=== PATIENT | female | born 1990 | race Caucasian/White ===

== ENCOUNTER → 2022-02-26 07:48 | Outpatient (BNVA) | payer OTHER, SELFPAY | PROVIDERS: Family Provider Family Medicine; Visit Provider Family Medicine Adult Medicine | DX: R30.0 Dysuria (principal); R10.2 Pelvic and perineal pain; F31.11 Bipolar disorder, current episode manic without psychotic features, mild; Z87.442 Personal history of urinary calculi; K02.9 Dental caries, unspecified | CPT/HCPCS: 81000 ==

== ENCOUNTER → 2022-04-16 13:34 | Outpatient (BNVA) | payer OTHER, SELFPAY | PROVIDERS: Family Provider Family Medicine; Referring Provider Family Medicine Adult Medicine; Visit Provider Obstetrics & Gynecology | DX: R10.2 Pelvic and perineal pain (principal); G89.29 Other chronic pain | CPT/HCPCS: 87491; 87591 ==

== ENCOUNTER → 2022-04-30 09:12 | Outpatient (BNVA) | payer OTHER, SELFPAY | PROVIDERS: Family Provider Family Medicine; Visit Provider Obstetrics & Gynecology | DX: G89.29 Other chronic pain (principal); R10.2 Pelvic and perineal pain | CPT/HCPCS: 76830; 76856 ==

== ENCOUNTER 2022-06-13 06:37 | Day surgery (SDC) | payer OTHER, SELFPAY ==
--- NOTE | 2022-06-07 15:12 | P.ANESASSM_ITS ---
Pre-Anesthetic Assessment Height/Weight: Height 1.65 m Weight 83.461 kg Operation Date: 06/13/22 14:15 Proposed Procedures p Diagnostic laparoscopy 33629,R10.2(Not Applicable) - Yuri Brito MD Familial anesthetic complications: none Was Beta Dieudonne taken within 24 hours: N/A Was Clonidine taken within 24 hours: N/A Social No alcohol and No tobacco (h/o smoking) Exam alert, oriented x 3 and regular rate & rhythm Airway Submandibular: within normal limits Cervical ROM: within normal limits Mallampati: Class II Dentition: chipped Comments: Comments: multiple caries Pulmonary Asthma and Chronic Obstructive Pulmonary Disease Neuropsych Bipolar Anesthetic Plan ASA status: 2 Anesthesia: General Medications/Allergies Home Medications Medication Instructions Recorded Confirmed Last Taken Type albuterol sulfate 90 mcg/actuation 2 puff inhalation Q6H PRN 03/26/22 06/07/22 Unknown Rx aerosol inhaler shortness of breath or wheezing #8.5 grams fluticasone 250 mcg-salmeterol 50 1 inh inhalation BID #60 ea 03/26/22 06/07/22 Unknown Rx mcg/dose blistr powdr for inhalation (Advair Diskus) Allergies Allergy/AdvReac Type Severity Reaction Status Date / Time tramadol Allergy Severe ALGY-Anaphy Verified 06/07/22 08:46 laxis Penicillins Allergy Unknown Unknown Verified 06/07/22 08:46 [facility] Anesthesia Medical History (Updated 04/16/22 @ 13:39 by Yuri Brito MD) Asthma exacerbation Bipolar 1 disorder, manic, mild Dental caries Dysuria History of kidney stones Pelvic pain Surgical History (Updated 04/16/22 @ 13:13 by Marylin Matute RN) H/O: Hx of right knee surgery Family History (Updated 04/16/22 @ 13:11 by Marylin Matute RN) Father Anesthesia complication Hypertension Stroke Heart disease Grandmother Diabetes maternal Hypertension maternal Stroke maternal Thyroid condition maternal Heart disease maternal Uterine cancer, Onset Age: 17 paternal Mother Hypertension Heart disease Breast cancer 30's Denies family history of Colon cancer Ovarian cancer Clotting disorder Hyperlipidemia Bleeding disorder Social History (Updated 02/26/22 @ 07:31 by Rin Arrington LPN) Smoking and tobacco status: former smoker Quit status (tobacco): has quit using tobacco Year quit tobacco: 2016 Alcohol intake: former Marital status: Number of children: 1 Current occupational status: employed Female Reproductive History Date of last menstrual period: 04/19/22 Data Anesthesia Cardiac Studies: No Data to Display
[2022-06-13] VITALS (12 sets, daily range): BP systolic 102–110; BP diastolic 62–84; PULSE 58–89; RESP 12–24; TEMP 36.3–36.8; O2SAT 97–100
[2022-06-13] MEDS: sodium chloride 0.9% 1,000 ML 30 ML IV (07:13)
[2022-06-13] MEDS: scopolamine 1.5 Patch 1 PATCH TRANSDERMA (07:14)
[2022-06-13] MEDS: sodium chloride 0.9% 500 ML IV (07:14)
[2022-06-13 07:23] LABS: Basophils % 0.4 %; Eosinophils % 0.4 %; Hematocrit 34.5 % (37.0-47.0); Hemoglobin 11.2 g/dL (11.5-15.3); Lymphocytes # 1.4 10^3/uL (0.8-4.8); Lymphocytes % 24.7 %; Mean Corpuscular HGB Conc 32.5 g/dL (30.0-36.0); Mean Corpuscular Hemoglobin 27.8 pg (28.0-34.0); Mean Corpuscular Volume 85.6 fl (81-99); Mean Platelet Volume 10.8 fL (7.4-10.4); Monocytes # 0.4 10^3/uL (0.2-0.9); Monocytes % 7.9 %; Neutrophils # 3.68 10^3/uL (1.8-7.7); Neutrophils % 66.4 %; Nucleated Red Blood Cells % 0 %; Platelet Count 323 10^3/cmm (130-400); Red Blood Count 4.03 10^6/uL (4.1-5.3); Red Cell Distribution Width 13.7 % (12.1-15.1); White Blood Count 5.5 10^3/uL (4.0-10.0)
[2022-06-13 07:24] LABS: OR HCG Qualitative Urine Negative (Negative)
--- NOTE | 2022-06-13 07:33 | ANES.PAUD2 ---
Documented by User: Pretty Ramos CRNA 06/13/22 07:35 Pre-Anesthetic Update Pre-Anesthetic Assessment: Date of Surgery/Procedure: 06/13/22 Preop Diagnosis: Chronic pelvic pain Proposed Procedure: Operation Date: 06/13/22 08:00 Proposed Procedures p Diagnostic laparoscopy 49580,R10.2(Not Applicable) - Yuri Brito MD Last Intake: Intake Last Liquid Date 06/12/22 Last Liquid Time 20:00 Last Solid Date 06/12/22 Last Solid Time 20:00 Labs Last 48hrs: Short CBC 06/13/22 Range/Units 07:00 WBC 5.5 (4.0-10.0) 10^3/ uL Hgb 11.2 L (11.5-15.3) g/dL Hct 34.5 L (37.0-47.0) % MCV 85.6 (81-99) fl Plt Count 323 (130-400) 10^3/c mm Neut % (Auto) 66.4 % Neut # (Auto) 3.68 (1.8-7.7) 10^3/u L Vitals: Temperature 98.3 F 06/13/22 06:51 Temperature Source Temporal Artery S can 06/13/22 06:51 Pulse Rate 89 06/13/22 06:51 Respiratory Rate 16 06/13/22 06:51 Blood Pressure 110/84 06/13/22 06:51 Blood Pressure Lo n 92 06/13/22 06:51 Pulse Oximetry 97 06/13/22 06:51 Oxygen Delivery Me thod 06/13/22 07:16 Exam: Additional Exam Findings (including area of procedure): no changes in health since previous preoperative evaluation. Cardiac Studies: No Data to Display Documented by User: Freddy Dumont 06/13/22 13:42 Pre-Anesthetic Update Pre-Anesthetic Assessment: Date of Surgery/Procedure: 06/13/22 Cardiac Studies: No Data to Display
--- NOTE | 2022-06-13 07:36 | W.PM.OPSUD ---
Surgery/Procedure H&P Update DATE OF PROCEDURE: June 13, 2022 DATE H&P PERFORMED: 06/07/22 H&P UPDATE INFORMATION: I have reviewed H&P completed within last 30 days, I have examined patient prior to procedure and No changes to prior documentation PREOP DIAGNOSIS: Chronic pelvic pain PLANNED PROCEDURE: Operation Date: 06/13/22 08:00 Proposed Procedures p Diagnostic laparoscopy 45090,R10.2(Not Applicable) - Yuri Brito MD
[2022-06-13 07:53] LABS: Alanine Aminotransferase 11 U/L (0-33); Albumin Level 4.3 g/dL (3.5-5.2); Alkaline Phosphatase 67 U/L (35-105); Anion Gap 16.5 (5-19); Aspartate Amino Transferase 14 U/L (0-32); Blood Urea Nitrogen 16 mg/dL (6-20); Calcium 9.1 mg/dL (8.5-10.5); Carbon Dioxide 23 mmol/L (22-29); Chloride 100 mmol/L (98-107); Globulin 4.8 g/dL (1.3-4.6); Glomerular Filtration Rate 98.3 mL/min (90-130); Glucose 72 mg/dL (65-115); Osmolality Calculated 282 mOsm/kg (285-295); Potassium 3.5 mmol/L (3.5-5.1); Sodium 136 mmol/L (136-145); Total Bilirubin 1.5 mg/dL (0.15-1.2); Total Protein 9.1 g/dL (6.6-8.7)
[2022-06-13] MEDS: vancomycin 1,000 MG in sodium chloride 0.9% 250 ML 250 MG IV (07:53)
[2022-06-13 08:02] LABS: Urine Appearance Cloudy (CLEAR); Urine Color Red (Yellow); pH Urine 5 (5-7)
[2022-06-13 08:03] LABS: Add Urine Microscopic? YES; Bilirubin Urine 1+ (Negative); Blood Urine 3+ (Negative); Glucose Urine UA Norm (Normal); Ketones Urine 1+ (Negative); Leukocyte Esterase Urine Trace (Negative); Nitrate Urine Negative (Negative); Protein Urine 2+ (Negative); Urobilinogen Urine 1 mg/dL (Negative)
[2022-06-13 08:05] LABS: Add Urine Culture? Yes; Bacteria Urine 1+ /hpf; RBC Urine >100 /hpf (0-2)
[2022-06-13] MEDS: fentaNYL 50 mcg/mL INJ 2mL IVP (09:04)
--- NOTE | 2022-06-13 10:32 | P.OP_ITS ---
Operative Report Date of procedure: June 13, 2022 Pre-op diagnosis: Preop Diagnosis Chronic pelvic pain Post-op diagnosis: Same as above Post-op findings: Normal pelvic organs increased vascularity Procedure done: Diagnostic laparotomy Specimens removed/disposition: None Surgeon: Yuri Brito MD Estimated blood loss (mL): 5 IV fluids (mL): 500 Urine output (mL): 50 Complications: None Procedure: After informed consent, the patient was taken to the operating room where general anesthesia was administered. The patient was examined under anesthesia and found to have a normal uterus with normal adnexa. She was placed in the dorsal lithotomy position and prepped and draped in sterile fashion. Pre- Procedure Time-Out verifying the correct patient identity, correct procedure verified with consent, correct site and side, correct patient position, availability of correct implants and any special equipment or requirements was performed and acknowledge by the OR team. A weighted speculum was placed in the vagina, and the anterior lip of cervix was grasped with the single toothed tenaculum. A uterine manipulator was advanced into the endocervical. Tenaculum was removed after uterine manipulator was secured. The speculum was removed from the vagina. An intraumbilical incision was made with a scalpel. While tenting up on the abdomen, a Verres needle with sleeve was admitted into the intra-abdominal cavity. A saline drop test was performed and noted to be within normal limits. Pneumoperitoneum was attained with 4 liters of carbon dioxide. The Verres needle was removed. A 5 mm trocar and sleeve were admitted into the abdomen and laparoscopic confirmation of location was achieved, A second incision was made 3 cm above the symphysis pubis, and a 5 mm trocar and sleeve were admitted into the abdomen under direct, laparoscopic visualization without complication. A survey revealed normal abdominal anatomy and pelvic survey shows normal uterus, left and right adnexa. A 5 mm blunt probe was advanced through the second trocar sleeve, and light manipulation of ovaries and uterus to assess the posterior aspects was performed. Status post partial salpingectomy noted an increase vascular pattern by the adnexas. No identifiable pathology noted. Then the carbon dioxide was allowed to escape from the abdomen. The instruments were removed, and skin cover with a bandage. The instruments were removed from the vagina, and excellent hemostasis was noted. The patient tolerated the procedure well, and sponge, lap and needle count were correct times two. The patient taken to the recovery room in good condition.
--- NOTE | 2022-06-13 13:42 | ANE.PACU2 ---
Inpatient post-anesthesia follow up: Airway intact: Yes Vital signs: Temperature 97.3 F Pulse Rate 76 Respiratory Rate 16 Blood Pressure 105/81 Pulse Oximetry 99 Oxygen Delivery Me thod Room Air Oxygen Flow Rate 4 Fraction of Inspir ed Oxygen Hydration adequate: Yes Nausea and vomiting: No Pain level: 3 Mental status: Baseline
== END 2022-06-13 10:55 | disposition home or self-care (01) ==
PROVIDERS: PCP Family Medicine Adult Medicine; Visit Provider Obstetrics & Gynecology
PROC: (CPT 49320; principal; 2022-06-13 08:00)
DX: R10.2 Pelvic and perineal pain (principal); G89.29 Other chronic pain; J44.9 Chronic obstructive pulmonary disease, unspecified; Z79.51 Long term (current) use of inhaled steroids; Z87.891 Personal history of nicotine dependence; Z88.0 Allergy status to penicillin; Z88.5 Allergy status to narcotic agent
CPT/HCPCS: 49320; 80053; 81001; 84703; 85025; 86850; 86900; 87086; J1100; J1200; J1885; J2250; J2405; J2704; J2710; J3010; J3370; J3490; J7030; J7040; J7050